=== PATIENT | female | born 1970 | race Caucasian/White ===

== ENCOUNTER 2017-01-27 13:24 | Emergency (ER) | payer OTHER, MEDICARE ==
[~2017-01-27] VITALS: Ht 158.8 cm; Wt 120.0 kg
[2017-01-27 13:35] VITALS: BP 188/119; PULSE 84; RESP 22; TEMP 97.9; O2SAT 96
[2017-01-27 13:40] VITALS: BP 188/119; PULSE 84; RESP 20; TEMP 97.9; O2SAT 96
[2017-01-27] MEDS ORDERED: BUTA1CAP PO (13:46)
[2017-01-27] MEDS ORDERED: PROP20TA3 PO ×2 (13:47→14:07)
--- NOTE | 2017-01-27 14:07 | PD ---
HPI Chief Complaint: Abdominal Pain Time Seen by Provider: 13:58 Travel History International Travel<30 days: No Contact w/Intl Traveler<30days: No Traveled to known affect area: No History of Present Illness HPI 46-year-old female complains of abdominal pain and persistent dry cough. Patient has history of allergies and has been coughing for the past several weeks. Patient denies fever. Patient denies any chest pain or shortness of breath. Patient states that she had an sudden onset of abdominal wall pain about 6 months ago after reaching for some object. Patient has been doing well until she struck her abdominal wall against an object last night and started having pain around the umbilicus area. Patient denies any nausea vomiting. Patient denies any fever chills. Patient denies any dysuria or frequency. Patient states that she noticed a lump on the abdominal wall when she was standing up and a lump resolved when she lied down. Patient has history of hypertension and was on propranolol and lisinopril in the past. Patient subsequently was only taking propanolol. Patient ran out of medication. PFSH Past Medical History Anxiety: Yes Cardiovascular Problems: Yes Diminished Hearing: No Hiatal Hernia: Yes Hypertension: Yes Neurologic: Yes Psychiatric: Yes Respiratory: Yes (ALLERGIES) Migraines: Yes Seizures: Yes (?) Sleep Apnea: Yes (CPAP) ?: Not LMP: NOVEMBER 2016 Past Surgical History Abdominal Surgery: Yes (EXPL LAP- REMOVED CYST FROM OVARIES) Gynecologic Surgery: Yes (C-SEC X 2) Other Surgery: Yes (COLON RESECTION R/T DIVERTICULITIS) Social History Alcohol Use: No Tobacco Use: No (VAP) Substance Use: No Allergies-Medications (Allergen,Severity, Reaction): Coded Allergies: Imitrex (Verified Allergy, Severe, 01/27/17) "ALMOST KILLED ME" Penicillin (Verified Allergy, Severe, Hives, 01/27/17) Sulfa (Verified Allergy, Severe, Hives, 01/27/17) Reported Meds & Prescriptions Reported Meds & Active Scripts Active [Phenergan W Codein] 10 Ml PO Q6HR Propranolol (Propranolol HCl) 20 Mg Tab 20 Mg PO Q12HR Reported Propranolol (Propranolol HCl) 20 Mg Tab Unknown Dose PO BID Fioricet (Nyazotlryh-Ymchtjtnbipvt-Gbcebqrk) 50-300-40 Mg Cap 1 Cap PO Q4H PRN Review of Systems General / Constitutional: No: Fever Eyes: No: Visual changes HENT: No: Headaches Cardiovascular: No: Chest Pain or Discomfort Respiratory: No: Shortness of Breath Gastrointestinal: Positive: Abdominal Pain Genitourinary: No: Dysuria Musculoskeletal: No: Pain Skin: No Rash Neurologic: No: Weakness Psychiatric: No: Depression Endocrine: No: Polydipsia Hematologic/Lymphatic: No: Easy Bruising Physical Exam Narrative GENERAL: Well-nourished, well-developed patient. SKIN: Focused skin assessment warm/dry. HEAD: Normocephalic. EYES: No scleral icterus. No injection or drainage. NECK: Supple, trachea midline. No JVD or lymphadenopathy. CARDIOVASCULAR: Regular rate and rhythm without murmurs, gallops, or rubs. RESPIRATORY: Breath sounds equal bilaterally. No accessory muscle use. GASTROINTESTINAL: Abdomen soft, nondistended. Patient has a small reducible abdominal wall hernia above the umbilicus. Nontender to some palpation abdominal wall now. MUSCULOSKELETAL: No cyanosis, or edema. BACK: Nontender without obvious deformity. No CVA tenderness. Neurologic exam normal. Data Data Last Documented VS Vital Signs Date Time Temp Pulse Resp B/P Pulse Ox O2 Delivery O2 Flow Rate FiO2 01/27/17 13:40 97.9 84 20 188/119 96 Room Air MDM Medical Decision Making Medical Screen Exam Complete: Yes Emergency Medical Condition: Yes Differential Diagnosis Differential diagnosis including reducible hernia, incarcerated hernia, strangulated hernia. Narrative Course 46-year-old female with abdominal wall pain. Patient has a small reducible abdominal wall hernia. Patient has elevated blood pressure. History of hypertension and has not been on medication recently. Diagnosis Primary Impression: Abdominal hernia Qualified Code: K43.9 - Ventral hernia without obstruction or gangrene Additional Impression: History of hypertension Patient Instructions: General Instructions Additional Instructions: Take propanolol for high blood pressure. Follow-up with general surgeon for hernia repair. Return immediately if unable to reduce the hernia, increased abdominal pain, fever, vomiting. Med/Other Pt SpecificInfo: Prescription(s) given Scripts [Phenergan W Codein] No Conflict Check10 Ml PO Q6HR #180 Prov:Omkar Faust MD 01/27/17 Propranolol 20 Mg Tab20 Mg PO Q12HR #60 TAB Ref 0 Prov:Omkar Faust MD 6/27/17 Disposition: 01 DISCHARGE HOME Condition: Stable Omkar Faust MD Jan 27, 2017 14:07
[2017-01-27] MEDS ORDERED: PHENERGAN W CODEIN PO (14:10)
== END 2017-01-27 14:39 | disposition home or self-care (01) ==
LOC: NEPE 13:24
DX: K43.9 Ventral hernia without obstruction or gangrene (principal); I10 Essential (primary) hypertension
CPT/HCPCS: 99284

== ENCOUNTER 2017-02-03 12:35 | Emergency (ER) | payer OTHER, MEDICARE ==
[~2017-02-03 12:35] MED LIST: BUTA1CAP PO; PHENERGAN W CODEIN PO; PROP20TA3 PO
[2017-02-03 12:39] VITALS: BP 263/134; PULSE 75; RESP 18; TEMP 98.4; O2SAT 98
[2017-02-03 13:04] VITALS: BP 188/83; PULSE 80; RESP 18; O2SAT 98
--- NOTE | 2017-02-03 13:17 | PD ---
HPI Chief Complaint: Injury Time Seen by Provider: 13:16 Travel History International Travel<30 days: No Contact w/Intl Traveler<30days: No Traveled to known affect area: No History of Present Illness HPI 46-year-old female presents to emergency Department with complaint of a pain in her back just below her right scapula 4 days. Has history of similar symptoms and was told that she had a "pinched nerve" in her back. Denies injury. Pain is worse with movement. Denies IV drug use or cancer. Denies fever, vomiting. Denies chest pain, shortness of breath. Reports allergies and cough. Denies hemoptysis. Took ibuprofen last night for symptom management. Allergies to Imitrex, penicillin, sulfa. Has no other medical complaints. No other modifying factors or associated signs and symptoms. PFSH Past Medical History Anxiety: Yes Cardiovascular Problems: Yes Diminished Hearing: No Hiatal Hernia: Yes Hypertension: Yes Neurologic: Yes Psychiatric: Yes Respiratory: Yes (ALLERGIES) Migraines: Yes Seizures: Yes (?) Sleep Apnea: Yes (CPAP) ?: Unknown Past Surgical History Abdominal Surgery: Yes (EXPL LAP- REMOVED CYST FROM OVARIES) Gynecologic Surgery: Yes (C-SEC X 2) Other Surgery: Yes (COLON RESECTION R/T DIVERTICULITIS) Social History Alcohol Use: No Tobacco Use: No (VAP) Substance Use: No Allergies-Medications (Allergen,Severity, Reaction): Coded Allergies: Imitrex (Verified Allergy, Severe, 02/03/17) "ALMOST KILLED ME" Penicillin (Verified Allergy, Severe, Hives, 02/03/17) Sulfa (Verified Allergy, Severe, Hives, 02/03/17) Reported Meds & Prescriptions Reported Meds & Active Scripts Active Ibuprofen 800 Mg Tab 800 Mg PO Q6HR PRN Robaxin (Methocarbamol) 500 Mg Tab 500 Mg PO QID PRN Propranolol (Propranolol HCl) 20 Mg Tab 20 Mg PO Q12HR Reported Flonase Nasal [place] (Fluticasone Nasal [place]) 50 Mcg/Act [place] 50 Mcg EACH NARE HS Proair Hfa 8.5 GM Inh (Albuterol Sulfate) 90 Mcg/Act Aer 2 Puff INH Q6H PRN 108 mcg/actuation Fioricet (Wqwjranzex-Ugaobjexwjahx-Rxcbubva) 50-300-40 Mg Cap 1 Cap PO Q4H PRN Review of Systems Except as stated in HPI: all other systems reviewed are Neg Physical Exam Narrative GENERAL: Well-nourished, well-developed female patient, in no acute distress SKIN: Warm and dry. HEAD: Atraumatic. Normocephalic. EYES: Pupils equal and round. No scleral icterus. No injection or drainage. ENT: Mucosa pink and moist. Airway patent. NECK: Trachea midline. CARDIOVASCULAR: Regular rate and rhythm. No murmur appreciated. RESPIRATORY: No accessory muscle use. Breath sounds clear and equal bilaterally. GASTROINTESTINAL: Obese. MUSCULOSKELETAL: No obvious deformities. No clubbing. No cyanosis. No edema. BACK: No point tenderness on palpation of the thoracic spine. Reproducible tenderness to the right trapezius muscle just below the right scapula. NEUROLOGICAL: Awake and alert. Oriented 3. No obvious cranial nerve deficits. Motor grossly within normal limits. Normal speech. PSYCHIATRIC: Appropriate mood and affect; insight and judgment normal. Data Data Last Documented VS Vital Signs Date Time Temp Pulse Resp B/P Pulse Ox O2 Delivery O2 Flow Rate FiO2 02/03/17 13:11 98 Room Air 02/03/17 13:04 80 18 188/83 02/03/17 12:39 98.4 Orders Orphenadrine Inj (Norflex Inj) (02/03/17 13:30) Ibuprofen (Motrin) (02/03/17 13:30) MDM Medical Decision Making Medical Screen Exam Complete: Yes Emergency Medical Condition: Yes Medical Record Reviewed: Yes Differential Diagnosis Muscle spasm, muscle strain, back pain Narrative Course 46-year-old female physical exam consistent with muscle spasm of the right trapezius muscle. Norflex and ibuprofen administered in the ER. Robaxin and ibuprofen prescribed for home. Instructed patient to follow up with primary care provider. Patient verbalizes understanding and agreement with treatment plan. Patient is medically cleared and stable for discharge. Discussed reasons to return to the emergency department. Patient agrees with treatment plan. The patients vital signs are stable and the patient is stable for outpatient follow-up and treatment. Patient discharged home, stable and in no acute distress. Diagnosis Primary Impression: Trapezius muscle spasm Referrals: Primary Care Physician Patient Instructions: General Instructions, Muscle Spasm (ED) Additional Instructions: Tylenol or ibuprofen as directed and as needed to reduce pain Robaxin as prescribed for muscle spasms Get adequate rest Ice and/or heating pad to affected area to reduce pain Avoid aggravating activity; increase activity as tolerated Follow-up with primary care provider Return to the emergency department immediately with worsening symptoms Med/Other Pt SpecificInfo: Prescription(s) given Scripts Ibuprofen 800 Mg [id number] Mg PO Q6HR PRN (PAIN) #30 TAB Ref 0 Prov:Candy Prater 02/03/17 Methocarbamol (Robaxin)500 Mg [id number] Mg PO QID PRN (MUSCLE SPASM) #30 TAB Ref 0 Prov:Candy Prater 02/03/17 Disposition: 01 DISCHARGE HOME Condition: Stable Candy Prater Feb 03, 2017 13:17
[2017-02-03] MEDS ORDERED: ALBUAER3 INH (13:19)
[2017-02-03] MEDS ORDERED: FLUT1SPR5 EACH NARE (13:19)
[2017-02-03] MEDS ORDERED: ROBA500T PO (13:21)
[2017-02-03] MEDS ORDERED: IBUP800T23 PO (13:21)
[2017-02-03] MEDS ORDERED: ORPHENADRINE INJ 60 MG/2 ML AMP IM ONE (13:30)
[2017-02-03] MEDS ORDERED: IBUPROFEN 800 MG TAB PO ONE (13:30)
== END 2017-02-03 13:43 | disposition home or self-care (01) ==
LOC: NEPD 12:35
DX: I10 Essential (primary) hypertension (principal); M62.838 Other muscle spasm
CPT/HCPCS: 96372; 99284; J2360

== ENCOUNTER 2017-04-04 16:36 | Emergency (ER) | payer MEDICARE, MEDICAID ==
[~2017-04-04] VITALS: Ht 157.5 cm; Wt 125.0 kg
[~2017-04-04 16:36] MED LIST changes: +ALBUAER3 INH; +FLUT1SPR5 EACH NARE; +IBUP800T23 PO; +LISI10TA3 PO; -PHENERGAN W CODEIN PO; -PROP20TA3 PO; +PROP40TA3 PO; +ROBA500T PO
[2017-04-04 16:42] VITALS: BP 176/94; PULSE 84; RESP 15; TEMP 98.4; O2SAT 98
[2017-04-04 17:09] LABS: BACTERIA, URINE MOD /hpf; BLOOD, URINE LARGE (NEG); GLUCOSE,URINE NEG (NEG); KETONE, URINE NEG (NEG); MUCUS URINE FEW /lpf (OCC); NITRITE,URINE POS (NEG); PH, URINE 6.5 (5.0-8.5); SQUAMOUS EPITHELIAL CELL URINE 1 /hpf (0-5)
[2017-04-04 17:10] LABS: URINE COLOR PINK (YELLW/STRAW)
[2017-04-04 17:11] LABS: COMMENT (UR) CULTURE INDICATED; CULTURE IF INDICATED CULTURE INDICATED
--- NOTE | 2017-04-04 17:17 | PD ---
HPI Chief Complaint: Complaint Time Seen by Provider: 16:52 Travel History International Travel<30 days: No Contact w/Intl Traveler<30days: No Traveled to known affect area: No History of Present Illness HPI Patient comes in complaining of hematuria that she first noted 2-3 days ago along with urinary frequency, pelvic pressure, and incomplete bladder emptying sensation began roughly 2 hours ago. Patient states she feels that she has a urinary tract infection as she has had multiple times throughout the years. Patient states she's been having her menstrual cycle over the past 2 weeks and she has been using a menstrual cup for this. Denies any fevers, back pain, chest pain, shortness of breath, abdominal pain, change in bowel, or numbness or tingling anywhere. Patient states she is not concerned about her menstrual cycle as she is perimenopausal and is just concerned about possible UTI PFSH Past Medical History Anxiety: Yes Cardiovascular Problems: Yes Diminished Hearing: No Hiatal Hernia: Yes Hypertension: Yes Neurologic: Yes Psychiatric: Yes Respiratory: Yes (ALLERGIES) Migraines: Yes Seizures: Yes (?) Sleep Apnea: Yes (CPAP) ?: Not Past Surgical History Abdominal Surgery: Yes (EXPL LAP- REMOVED CYST FROM OVARIES) Section: Yes Gynecologic Surgery: Yes (C-SEC X 2) Other Surgery: Yes (COLON RESECTION R/T DIVERTICULITIS) Social History Alcohol Use: No Tobacco Use: No (VAP) Substance Use: No Allergies-Medications (Allergen,Severity, Reaction): Coded Allergies: Sulfa (Sulfonamide Antibiotics) (Unverified Allergy, Severe, Hives, ) penicillin G (Unverified Allergy, Severe, Hives, 03/25/17) sumatriptan (Unverified Allergy, Severe, 03/25/17) "ALMOST KILLED ME" Reported Meds & Prescriptions Reported Meds & Active Scripts Active Macrobid (Nitrofurantoin Monoh/Nitrofur Macro) 100 Mg Cap 100 Mg PO BID 10 Days Pyridium (Phenazopyridine HCl) 100 Mg Tab 200 Mg PO Q8H PRN Lisinopril 10 Mg Tab 10 Mg PO DAILY Propranolol (Propranolol HCl) 40 Mg Tab 40 Mg PO Q12HR Fioricet (Vxwvcyqvyf-Xvjxcfyarxrjo-Ttnkaumn) 50-300-40 Mg Cap 1-2 Cap PO Q6H PRN Ibuprofen 800 Mg Tab 800 Mg PO Q6HR PRN Robaxin (Methocarbamol) 500 Mg Tab 500 Mg PO QID PRN Reported Flonase Nasal [place] (Fluticasone Nasal [place]) 50 Mcg/Act [place] 50 Mcg EACH NARE HS Proair Hfa 8.5 GM Inh (Albuterol Sulfate) 90 Mcg/Act Aer 2 Puff INH Q6H PRN 108 mcg/actuation Fioricet (Dbxzqsjupu-Vulheydbdcsob-Pnuynlsj) 50-300-40 Mg Cap 1 Cap PO Q4H PRN Review of Systems Except as stated in HPI: all other systems reviewed are Neg Physical Exam Narrative GENERAL: Well-developed, overly nourished, in no acute distress, and non-ill appearing. SKIN: Focused skin assessment warm and dry. HEAD: Atraumatic. Normocephalic. EYES: Pupils equal and round. EOMI. No scleral icterus. No injection or drainage. ENT: No nasal bleeding or discharge. Mucous membranes pink and moist. NECK: Trachea midline. Supple. No nuclear rigidity. CARDIOVASCULAR: Regular rate and rhythm. No murmur appreciated. RESPIRATORY: No accessory muscle use. No respiratory distress. Clear to auscultation. Breath sounds equal bilaterally. GASTROINTESTINAL: Abdomen soft, non-tender, nondistended, and no guarding. Hepatic and splenic margins not palpable. Normal bowel sounds 4. No pulsatile mass. MUSCULOSKELETAL: No obvious deformities. No clubbing. No cyanosis. No edema. Full range of motion. NEUROLOGICAL: Awake and alert. No obvious cranial nerve deficits. Motor grossly within normal limits. Normal speech. PSYCHIATRIC: Appropriate mood and affect; insight and judgment normal. Data Data Last Documented VS Vital Signs Date Time Temp Pulse Resp B/P (MAP) Pulse Ox O2 Delivery O2 Flow Rate FiO2 04/04/17 16:42 98.4 84 15 176/94 (121) 98 Orders Orders Ed Urine Pregnancytest Poc (04/04/17 16:41) Urinalysis - C+S If Indicated (04/04/17 16:41) Urine Culture (04/04/17 14:55) Phenazopyridine (Pyridium) (04/04/17 17:30) Nitrofurantoin Monohyd Macrocr (Macrobid (04/04/17 17:30) Labs Laboratory Tests Test 04/04/17 14:55 Urine Color PINK Urine Turbidity HAZY Urine pH 6.5 Urine Specific Cranks 1.017 Urine Protein 30 mg/dL Urine Glucose (UA) NEG mg/dL Urine Ketones NEG mg/dL Urine Occult Blood LARGE Urine Nitrite POS Urine Bilirubin NEG Urine Urobilinogen LESS THAN 2.0 MG/DL Urine Leukocyte Esterase LARGE Urine RBC /hpf Urine WBC 167 /hpf Urine WBC Clumps FEW Urine Squamous Epithelial Cells 1 /hpf Urine Bacteria MOD /hpf Urine Mucus FEW /lpf Microscopic Urinalysis Comment CULTURE INDICATED MDM Medical Decision Making Medical Screen Exam Complete: Yes Emergency Medical Condition: Yes Differential Diagnosis UTI, renal calculi, pyelonephritis, other Narrative Course The patient presented with pelvic pressure. The patient otherwise appeared comfortable and hydrated. Urine analysis revealed evidence of UTI. There was no evidence of pyelonephritis, cervicitis or PID. Evaluation revealed no clinical evidence or picture of acute ovarian torsion at this time. The patient appears comfortable and no distress and no vomiting. The patient is to return if worsens , pain worsens or changes, Back pain, develop persistent fever, inability to tolerate fluids with or without vomiting, unable to establish follow up or as needed. There was no evidence of an acute, surgical abdomen at this time. There was no clinical evidence to support cholecystitis/cholelithiasis, pancreatitis, perforation of gastric ulcer, colitis, diverticulitis, obstruction, volvulus, early appendicitis, abdominal or femoral herniation or hernial incarceration or strangulation at this time. There was no evidence to support vascular pathology such as AAA, mesenteric ischemia. There was also no clinical evidence by history , exam or risk factors to suggest atypical presentation of cardiac disease such as ACS, AMI or atypical angina. The patient agreed with plan of care and management. The patient was instructed to follow up with their physician. Patient in no obvious distress upon re-evaluation. All pertinent laboratory result(s) discussed with patient. Patient was asked if they wanted to speak to my attending, which the patient did not wish to do at this time. Any questions/ concerns in reference to patient diagnosis/condition discussed and clarified prior to patient's discharge. Reinforced sheer importance of close follow up with patient's primary physician or primary care clinic. Instructed patient to return to ED immediately, if symptoms return/worsen. Pt showed understanding of above instructions. Further instructions and recommendations were detailed in discharge paperwork. Pt ambulated without difficulty out of ED at discharge. Diagnosis Primary Impression: Urinary tract infection Qualified Codes: N30.01 - Acute cystitis with hematuria Referrals: [facility] Patient Instructions: General Instructions, Urinary Tract Infection in Women ( ED) Additional Instructions: Follow-up with your primary care physician in 7-10 days for reevaluation. Take all medication as prescribed. Return to the emergency department if symptoms get worse. Med/Other Pt SpecificInfo: Prescription(s) given Scripts Nitrofurantoin Monohydrate Macrocrystals (Macrobid) 100 Mg Cap 100 MG PO BID for Infection for 10 Days, CAP 0 Refills Prov: Judie Raines MD 04/04/17 Phenazopyridine (Pyridium) 100 Mg Tab 200 MG PO Q8H Y for DYSURIA, #6 TAB 0 Refills Prov: Judie Raines MD 04/04/17 Disposition: 01 DISCHARGE HOME Condition: Stable Adriel Guerra Apr 04, 2017 17:17
[2017-04-04] MEDS ORDERED: MACR100C2 PO (17:30)
[2017-04-04] MEDS ORDERED: PHENAZOPYRIDINE HCL 200 MG TAB PO ONE (17:30)
[2017-04-04] MEDS ORDERED: NITROFURANTOIN MONOHYD MACROCR 100 MG CAP PO ONE (17:30)
[2017-04-04] MEDS ORDERED: PHEN0.4T PO (17:30)
== END 2017-04-04 17:46 | disposition home or self-care (01) ==
LOC: NEPE 16:36
DX: N30.01 Acute cystitis with hematuria (principal); B96.20 Unspecified Escherichia coli [E. coli] as the cause of diseases classified elsewhere
CPT/HCPCS: 81001; 84703; 87077; 87086; 87186; 99284